=== PATIENT | male | born 1960 | race Caucasian/White ===

== ENCOUNTER 2016-08-24 07:48 | Day surgery (SDC) | payer BC ==
[~2016-08-24 07:48] MED LIST: LACTATED RINGERS 1,000 ML IV SCH; LIDOCAINE 1% 20 ML VIAL (10MG/ML) FOR IV START INTRADERMA PRN
[2016-08-24 08:12] VITALS: TEMP 97
[2016-08-24] MEDS ORDERED: ONDANSETRON 4 MG/2 ML VIAL IVP ONE (08:19)
[2016-08-24] MEDS ORDERED: PROPOFOL 10 MG/ML 20 ML VIAL IV ONE (08:56)
[2016-08-24] MEDS ORDERED: LIDOCAINE 1% INJ 10MG/ML (20 ML MDV) ONE (08:56)
[2016-08-24] MEDS ORDERED: GLYCOPYRROLATE 0.2 MG/ML 2 ML VIAL ONE (08:56)
--- NOTE | 2016-08-24 09:07 | P.PCN ---
Date of Procedure: 08/24/16 Procedure(s) Performed: BRIEF HISTORY: Patient is a 56-year-old, pleasant, white male, scheduled for an upper endoscopy as a part of evaluation of long-standing history of gastric esophageal he for symptoms of several years duration. He is presently maintained on omeprazole 20 mg daily but continues to have daily symptoms with heartburn and passive regurgitation. His and scheduled for an upper endoscopy to rule out compensated reflux disease. PROCEDURE PERFORMED: Esophagogastroduodenoscopy with biopsy. PREOPERATIVE DIAGNOSIS: Long-standing history of GERD with worsening symptoms. IV sedation per anesthesia. PROCEDURE: After informed consent was obtained, the patient was brought into the endoscopy unit. IV conscious sedation was administered by Anesthesia under continuous monitoring. Initially the Olympus GIF-140 video endoscope was inserted into the mouth. Esophagus intubated without any difficulty. It was gradually advanced into the stomach and duodenum and carefully examined. The bulb and the second part of the duodenum appeared normal. The scope at this time was withdrawn to the stomach, adequately insufflated with air, and upon careful examination, mucosa of the antrum had scattered erosions and biopsies were done from this area. The, body, cardia and the fundus appeared normal. The scope was then withdrawn into the esophagus. The GE junction was located at 42 cm from the incisors. There was a short segment of Ledezma's esophagus extending 5-6 mm proximal to the GE junction and this was biopsied. The rest of the esophagus appeared normal. There were no erosions or ulcerations seen and the patient tolerated the procedure well. IMPRESSION: 1. Mild antral erosive gastritis. 2. 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 RECOMMENDATIONS: The findings of this examination were discussed with the patient as well as his family. He will follow with the biopsy results. He was advised to increase omeprazole to 20 mg twice daily half hour before breakfast and dinnertime and follow antireflux measures. He will be seen in office in 4 weeks.
[2016-08-24 09:31] VITALS: BP 105/61; PULSE 48; RESP 18
--- NOTE | 2016-08-26 11:47 | CDI ---
Dear Dr. Barfield, The Procedure note documents IV sedation per anesthesia in on spot and then under Procedure, it is documented as IV Conscious Sedation. On the Anesthesia Record, however, GA/Unconscious sedation is checked off. This is conflicting documentation that needs clarification. Please clarify whether the sedation provided Keira Saúl was Conscious sedation or unconscious sedation. PLEASE DOCUMENT THIS CLARIFICATION AN ADDENDUM TO THE PROCEDURE NOTE. Thank you for your time [facility] Layer [email or web address]
--- NOTE | 2016-09-05 10:28 | PCN ---
ADDENDUM TO PROCEDURE NOTE: General anesthesia was utilized instead of IV conscious sedation.
== END 2016-08-24 09:52 | disposition home or self-care (01) ==
LOC: ORWHC2ENDO 07:48
PROVIDERS: ATTEND Internal Medicine Gastroenterology
DX: K22.70 Barrett's esophagus without dysplasia (principal); K21.0 Gastro-esophageal reflux disease with esophagitis; K20.0 Eosinophilic esophagitis; G62.9 Polyneuropathy, unspecified; K29.50 Unspecified chronic gastritis without bleeding; I10 Essential (primary) hypertension; Z79.899 Other long term (current) drug therapy; Z88.1 Allergy status to other antibiotic agents
CPT/HCPCS: 88305; 88342; 43239; J2405; J2001; J2704

== ENCOUNTER → 2017-12-25 | Day surgery (SDC) | payer BC ==
[2017-12-22 08:19] VITALS: BMI 25.4
[~2017-12-25] MED LIST changes: +ALPRAZolam 0.25 MG TAB PO PRN; +ALPRAZolam 0.5 MG TAB PO PRN; +ASPIRIN 325 MG TAB PO STA; +ATORVASTATIN 80 MG TAB PO STA; +GABAPENTIN 100 MG CAP PO SCH; +HEPARIN SODIUM 1,000 UN/ML (10ML VL) ONE; +IOPAMIDOL-370 125ML BTL INJ ONE; -LACTATED RINGERS 1,000 ML IV SCH; -LIDOCAINE 1% 20 ML VIAL (10MG/ML) FOR IV START INTRADERMA PRN; +LIDOCAINE 2% INJ 20 MG/ML SQ ONE; +NITROGLYCERIN SL TABS 0.4 MG TAB SUBLINGUAL PRN; +NON-FORMULARY DRUG (Aspirin [Adult Low Dose Aspirin Ec] 81 MG) PO SCH; +NON-FORMULARY DRUG (Cholecalciferol (Vitamin D3) [Vitamin D3] 2,000 UNIT) PO SCH; +NON-FORMULARY DRUG (Ezetimibe/Simvastatin [Vytorin 10-20 Mg Tablet] 1 TAB) PO SCH; +NON-FORMULARY DRUG (Fish Oil/Dha/Epa [Fish Oil 1,200 Mg Fish Oil] 1 EACH) PO SCH; +NON-FORMULARY DRUG (Omeprazole [Omeprazole] 20 MG) PO SCH; +NON-FORMULARY DRUG (Ubidecarenone [Co Q-10] 100 MG) PO SCH; +ONDANSETRON 4 MG/2 ML VIAL IVP STA; +RX INFO: IV CONTRAST WAS GIVEN 1 EACH MISC MISCELLANE PRN; +SODIUM CHLORIDE 0.9% 1,000 ML IV SCH; +SODIUM CHLORIDE 0.9% 1,000 ML in EMPTY BAG 1 BAG IV ONE; +VERAPAMIL 2.5 MG/ML 2 ML AMP ONE; +VERAPAMIL SYRINGE (5 MG/10 ML) INTRAARTER ONE; +fentaNYL (PF) 50 MCG/ML 2 ML AMP ONE; +traMADol 50 MG TAB PO PRN
[2017-12-25 07:09] VITALS: TEMP 97.9
[2017-12-25 07:20] LABS: Basophils # (A) 0.1 k/uL (0-0.2); Basophils % (A) 1 %; Eosinophils # (A) 0.4 k/uL (0-0.7); Eosinophils % (A) 7 %; HGB 14.1 gm/dL (13.0-17.5); Lymphocytes % (A) 38 %; MCH 29.6 pg (25.0-35.0); MCHC 33.5 g/dL (31.0-37.0); MCV 88.3 fL (80.0-100.0); Mean Platelet Volume 6.9; Monocytes # (A) 0.3 k/uL (0-1.0); Monocytes % (A) 7 %; Neutrophils # (A) 2.3 k/uL (1.3-7.7); Neutrophils % (A) 45 %; Platelet Count 221 k/uL (150-450); RBC 4.75 m/uL (4.30-5.90); RDW 12.7 % (11.5-15.5); WBC 5.2 k/uL (3.8-10.6)
[2017-12-25] MEDS: fentaNYL (PF) 50 MCG/ML 2 ML AMP IVP ONE ×2 (07:34→07:39)
[2017-12-25 07:44] LABS: Anion Gap 6 mmol/L; Blood Urea Nitrogen 23 mg/dL (9-20); Carbon Dioxide 27 mmol/L (22-30); Chloride 108 mmol/L (98-107); Glucose 103 mg/dL (74-99); Potassium 4.6 mmol/L (3.5-5.1); Sodium 141 mmol/L (137-145)
--- NOTE | 2017-12-25 09:10 | CC ---
CARDIAC CATHETERIZATION REPORT Mr. Hays is a 57-year-old male with a known history of hyperlipidemia, family history of premature coronary artery disease who presented with abnormal myocardial perfusion imaging and symptoms of progressive fatigue as well as episode of chest discomfort on and off. In view of that, recommendation made regarding cardiac catheterization. The procedures, risks and complication were discussed with the patient who is in full understanding and agreement. PROCEDURE: Patient was brought to the poultry farm laborer in a fasting semi-sedated state after receiving fentanyl and Benadryl and achieving moderate conscious sedated state. Using Xylocaine anesthesia and Seldinger technique, a 6-[place] sheath was introduced in the right radial artery. Selective right and left angiography performed using 5-[place] 3.5 half bend right and left Hector catheter. Multiple views of the coronary artery including hemiaxial views were obtained. Following that, a 5-[place] tight pigtail catheter was introduced into the left ventricle and a 30 degree SANTANA view of the left ventricle was obtained. Following that, catheter and sheaths were removed, hemostasis was obtained with deployment of an TR band. There was no immediate complication. Patient was returned to his room in stable condition. FINDINGS: LEFT MAIN: This is a large-sized vessel, bifurcating into left circumflex, left anterior descending artery, left main coronary artery has no evidence of obstructive coronary artery disease. LEFT ANTERIOR DESCENDING ARTERY: This is a large-sized vessel, reaching towards the apex, giving rise to 2 diagonal branch. The left anterior descending artery as well as branches have no evidence of obstructive coronary disease. LEFT CIRCUMFLEX: This is a nondominant vessel, giving rise to the obtuse marginal branch, the first one is very proximal. The left circumflex has no evidence of high- grade stenosis. RIGHT CORONARY ARTERY: This is a large dominant vessel, bifurcating to PDA and posterolateral segment branches, the PDA reaches towards the inferoapical wall. The right coronary artery has no evidence of obstructive coronary artery disease. LEFT VENTRICULOGRAM: Left ventriculogram is performed in 30 degree SANTANA view and revealed normal left ventricular size and systolic function. There was no evidence of segmental wall motion abnormality or mitral regurgitation. HEMODYNAMICS: There was no gradient across the aortic valve. The left ventricular end- diastolic pressure was 12 mmHg. CONCLUSION: 1. Normal coronary arteries. 2. Normal left ventricular size and systolic function. RECOMMENDATION: In view of finding anatomy, I have recommended continue medical therapy. Close followup of his sinus rate and depending on that, further recommendation will be made. Those findings and recommendation were discussed with the patient and his family who are in full understanding and agreement. Duration of the procedure is 17 minutes. GERTRUDE / IJN: [id number] /
[2017-12-25 09:23] VITALS: RESP 16
[2017-12-25 11:31] VITALS: PULSE 42
[2017-12-25 14:08] VITALS: BP 143/86
== END | disposition home or self-care (01) ==
LOC: CATHCVL 06:20
PROVIDERS: ATTEND Internal Medicine Interventional Cardiology
DX: R94.39 Abnormal result of other cardiovascular function study (principal); R07.89 Other chest pain; R00.1 Bradycardia, unspecified; Z82.49 Family history of ischemic heart disease and other diseases of the circulatory system; E78.2 Mixed hyperlipidemia; Z79.899 Other long term (current) drug therapy; Z79.82 Long term (current) use of aspirin
CPT/HCPCS: 93458; 80048; 85025; C1894; C1769; J2001; J2405; J3010; J1644; Q9967

== ENCOUNTER 2019-07-22 10:42 | Day surgery (SDC) | payer BC ==
[2019-07-18 11:56] VITALS: BMI 25.7
[~2019-07-22 10:42] MED LIST changes: -ALPRAZolam 0.25 MG TAB PO PRN; -ALPRAZolam 0.5 MG TAB PO PRN; -ASPIRIN 325 MG TAB PO STA; -ATORVASTATIN 80 MG TAB PO STA; +DEXAMETHASONE SOD PHOSPHATE 10 MG/ML 1 ML VIAL IV ONE; -GABAPENTIN 100 MG CAP PO SCH; -HEPARIN SODIUM 1,000 UN/ML (10ML VL) ONE; +HYDROmorphone 0.5 MG/0.5 ML SYRINGE IVP PRN; -IOPAMIDOL-370 125ML BTL INJ ONE; -LIDOCAINE 2% INJ 20 MG/ML SQ ONE; +MIDAZOLAM 2 MG/2 ML VIAL IV PRN; -NITROGLYCERIN SL TABS 0.4 MG TAB SUBLINGUAL PRN; -NON-FORMULARY DRUG (Aspirin [Adult Low Dose Aspirin Ec] 81 MG) PO SCH; -NON-FORMULARY DRUG (Cholecalciferol (Vitamin D3) [Vitamin D3] 2,000 UNIT) PO SCH; -NON-FORMULARY DRUG (Ezetimibe/Simvastatin [Vytorin 10-20 Mg Tablet] 1 TAB) PO SCH; -NON-FORMULARY DRUG (Fish Oil/Dha/Epa [Fish Oil 1,200 Mg Fish Oil] 1 EACH) PO SCH; -NON-FORMULARY DRUG (Omeprazole [Omeprazole] 20 MG) PO SCH; -NON-FORMULARY DRUG (Ubidecarenone [Co Q-10] 100 MG) PO SCH; +ONDANSETRON 4 MG/2 ML VIAL IVP ONE; -ONDANSETRON 4 MG/2 ML VIAL IVP STA; -RX INFO: IV CONTRAST WAS GIVEN 1 EACH MISC MISCELLANE PRN; -SODIUM CHLORIDE 0.9% 1,000 ML IV SCH; -SODIUM CHLORIDE 0.9% 1,000 ML in EMPTY BAG 1 BAG IV ONE; -VERAPAMIL 2.5 MG/ML 2 ML AMP ONE; -VERAPAMIL SYRINGE (5 MG/10 ML) INTRAARTER ONE; +ceFAZolin 1,000 MG in SODIUM CHLORIDE 0.9% IRRIGATIO 250 ML IRRIGATION ONE; -fentaNYL (PF) 50 MCG/ML 2 ML AMP ONE; -traMADol 50 MG TAB PO PRN
[2019-07-22] MEDS ORDERED: SODIUM CHLORIDE 0.9% 1,000 ML IV ONE (11:16)
[2019-07-22] MEDS ORDERED: PROPOFOL 10 MG/ML 20 ML VIAL IV ONE (13:40)
[2019-07-22] MEDS ORDERED: MIDAZOLAM 2 MG/2 ML VIAL ONE (13:40)
[2019-07-22] MEDS ORDERED: fentaNYL (PF) 50 MCG/ML 2 ML AMP ONE (13:40)
[2019-07-22] MEDS ORDERED: IOPAMIDOL-250 50ML BTL IV ONE (13:52)
[2019-07-22] MEDS ORDERED: LIDOCAINE 1% INJ 10MG/ML (20 ML MDV) ONE (14:01)
[2019-07-22] MEDS ORDERED: LIDOCAINE 1% INJ 10MG/ML (20 ML MDV) SQ ONE ×2 (14:24→14:35)
[2019-07-22] MEDS: ACETAMINOPHEN TAB 325 MG TAB PO PRN ×2 (16:23→21:03)
[2019-07-22] MEDS ORDERED: ONDANSETRON 4 MG/2 ML VIAL IVP STA (20:26)
[2019-07-22] MEDS: GABAPENTIN 100 MG CAP PO SCH (21:03)
[2019-07-22] MEDS: SODIUM CHLORIDE 0.9% 1,000 ML IV SCH (21:05)
[2019-07-22] MEDS: LACTATED RINGERS 1,000 ML IV SCH (21:06)
[2019-07-23 00:53] VITALS: RESP 18
[2019-07-23] MEDS: SODIUM CHLORIDE 0.9% 1,000 ML IV SCH (04:37)
[2019-07-23] MEDS: LACTATED RINGERS 1,000 ML IV SCH (05:03)
--- NOTE | 2019-07-23 07:01 | PCN ---
PROCEDURE NOTE Mr. Hays is a 59-year-old male patient who has symptomatic sick sinus syndrome with dizziness. He is not on any negative chronotropic agents. He is brought in for dual- chamber pacemaker implantation. DESCRIPTION OF PROCEDURE: The patient is brought to the EP lab in a fasting state. Written informed consent was obtained prior to the procedure. The left shoulder area was prepped and draped as per protocol. 1% lidocaine was used for local anesthesia. A 4 cm incision was made parallel to the deltopectoral groove, about 1.5 cm medial to it. The incision was carried down to the level of the pectoralis muscle. A subfascial pocket was made. Hemostasis was assured. The left axillary vein was accessed at 2 points under fluoroscopy and via appropriately-sized introducer sheaths 2 leads were positioned the right heart. The atrial lead was a passive [employer] senior environmental practice leader model #1944, 46 cm in length and serial number [id number]. P waves 5 mV. Pacing impedance 460 ohms. Pacing threshold 0.5 V at 0.4 milliseconds. 10 V test negative. The RV lead was positioned in the mid to high RV septum. This was a [employer] screw-in lead model #2088TC, 58 cm in length and serial number [id number]. R-waves were 4.3 mV, pacing impedance 105 0 ohms, pacing threshold 0.75 V at 0.4 milliseconds. 10 V test negative. Both leads were secured to the underlying pectoralis fascia using 2 nonabsorbable sutures. Pocket was irrigated with antibiotic solution. Leads connected to the generator. [employer] model number [id number], serial #[id number]. Leads and generator were then placed in subfascial pocket. The wound was closed in 3 layers and dressed per protocol. Procedure performed with anesthesia/VENEER STOCK GRADER in attendance. The patient tolerated the procedure well without any acute complications. Device is programmed to DDDR 60-130 ppm with VIP mode turned. RESULTS: Successful dual-chamber pacemaker implantation for symptomatic sick sinus syndrome. MMODL / IJN: [id number] /
--- NOTE | 2019-07-23 07:08 | LTR ---
DATE OF SERVICE: 07/22/2019 Dear Colleen: Mr. Hays underwent dual-chamber pacemaker implantation for symptomatic sick sinus syndrome successfully without any acute complications. He will continue to follow with you and Dr. James as before. Thank you for entrusting us in the care of your patient. Warm regards, Sincerely, MMODL / IJN: [id number] /
[2019-07-23 07:21] VITALS: PULSE 60
[2019-07-23] MEDS: GABAPENTIN 100 MG CAP PO SCH (08:29)
--- NOTE | 2019-07-23 08:56 | XR ---
EXAMINATION TYPE: XR chest 2V DATE OF EXAM: 07/23/2019 COMPARISON: NONE HISTORY: Lead placement check TECHNIQUE: Frontal and lateral views of the chest are obtained. FINDINGS: There is been interval placement of a generator in left pectoral region, there are leads i n right atrium and ventricle. No evident pneumothorax or pleural effusion. Heart size is normal, ther e are overlying cardiac leads. Azygos lobe noted incidentally. IMPRESSION: No evident complication status post lead placement.
[2019-07-23] MEDS ORDERED: ASPIRIN 81 MG PO SCH (09:00)
[2019-07-23 11:21] VITALS: BP 155/93; TEMP 97.4
--- NOTE | 2019-07-23 12:52 | P.DS ---
Providers Attending physician: Arie Gimenez Primary care physician: Colleen [facility] Course: Patient is a 59-year-old male with symptomatic sick sinus syndrome. Yesterday he underwent a successful implantation of a dual-chamber permanent pacemaker. He has done well overnight. He did have one 5 beat episode of NSVT on telemetry. Patient seen and examined resting in bed. Complaining of mild soreness at the pacemaker insertion site. Otherwise doing well. Tolerated his breakfast. He has been up walking around without any dizziness. No chest pain or shortness of breath. No palpitations dizziness or syncope. Chest x-ray reviewed, no evidence of pneumothorax, leads appears stable Patient is afebrile, pulse in the 60s, respirations 18, blood pressure in the 150s over 90s, oxygen saturation 95% on room air Patient seen and examined sitting up in bed, in no acute distress Lungs are clear to auscultation bilaterally. No wheezing rhonchi or crackles Heart is regular, no audible murmurs No elevated JVD No lower extremity edema Dressing clean dry and intact Impression Sick sinus syndrome status post implantation of dual chamber pacemaker 5 beat run of NSVT, asymptomatic, coronary angiogram showing normal coronary arteries in December 2017 Plan Hold off on beta blockers for now in order to minimize his RV pacing percentage Continue current cardiac medication regimen Follow-up in the device clinic in 5 days Follow-up Dr. James Plan - Discharge Summary Discharge Rx Participant: No New Discharge Prescriptions: No Action Gabapentin [Neurontin] 200 mg PO BID Omeprazole 20 mg PO BID traMADol HCl [Ultram] 50 mg PO DAILY PRN PRN Reason: Pain Nitroglycerin Sl Tabs [Nitrostat] 0.4 mg SUBLINGUAL Q5M PRN PRN Reason: Chest Pain Fish Oil/Dha/Epa [Fish Oil 1,200 mg Fish Oil] 1 each PO DAILY Cholecalciferol (Vitamin D3) [Vitamin D3] 2,000 unit PO DAILY Aspirin [Adult Low Dose Aspirin EC] 81 mg PO DAILY Discharge Medication List Gabapentin [Neurontin] 200 mg PO BID 08/23/16 [History] Omeprazole 20 mg PO BID 08/23/16 [History] Aspirin [Adult Low Dose Aspirin EC] 81 mg PO DAILY 12/22/17 [History] Cholecalciferol (Vitamin D3) [Vitamin D3] 2,000 unit PO DAILY 12/22/17 [History] Fish Oil/Dha/Epa [Fish Oil 1,200 mg Fish Oil] 1 each PO DAILY 12/22/17 [History] Nitroglycerin Sl Tabs [Nitrostat] 0.4 mg SUBLINGUAL Q5M PRN 12/22/17 [History] traMADol HCl [Ultram] 50 mg PO DAILY PRN 12/22/17 [History] Follow up Appointment(s)/Referral(s): Sanna James MD [STAFF PHYSICIAN] - 1 Week (Follow-up in the device clinic in 5 days Follow-up with Dr. James/ashish as previously scheduled or in 2-3 months) Activity/Diet/Wound Care/Special Instructions: PATIENT EDUCATION MATERIAL Instructions following a heart rhythm device implant. 1. Keep dressing DRY for 5 DAYS. You may cover the area with Saran or Cling Wrap, prior to a shower. 2. The dressing will be removed in the Device Clinic at [facility]. Absorbable sutures were used to close the wound. 3. Avoid raising the left arm above the shoulder level. 4 week restriction 4. Avoid arm movements, like backscratching, rubbing the head, or pulling on a cord. 4 weeks restriction 5. Gentle range of motion movements of the shoulder, closest to the incision should be performed to avoid a frozen shoulder. (Pendulum exercises of the shoulder) 6. The opposite arm may be used freely. 7. Avoid driving for 7 days. 8. Avoid activities such as golfing, swimming, weed whacking, lifting more than 10 pounds weight, bowling, gymnastics and weight training/lifting. (6 weeks restriction) 9. Activities such as wood chopping with an axe, pull-ups in the gymnasium, power lifting, arc-welding, being close to home induction cooktops will always be a problem. 10. Arm sling is only a reminder not to raise the arm above the head. You do not need to keep the arm completely immobilized. Your free to move the arm and use it and for normal activities. In case of any problems, please call [facility], Tomasz Mota, @ [phone], Attention: Device Clinic Device clinic follow-up in 5 days Follow-up with primary or nurse manager in 2-3 months Discharge Disposition: HOME SELF-CARE
[2019-07-23] MEDS: ACETAMINOPHEN TAB 325 MG TAB PO PRN (14:56)
== END 2019-07-23 15:07 | disposition home or self-care (01) ==
LOC: CATHEP 10:42 → 1SOBS 15:22 → CATHEP 07-23 15:07
PROVIDERS: ATTEND Internal Medicine Clinical Cardiac Electrophysiology
DX: I49.5 Sick sinus syndrome (principal); I45.89 Other specified conduction disorders; Z82.49 Family history of ischemic heart disease and other diseases of the circulatory system; E78.2 Mixed hyperlipidemia; Z79.82 Long term (current) use of aspirin; Z79.899 Other long term (current) drug therapy
CPT/HCPCS: 33208; 71046; C1769 ×4; C1892; C1898 ×2; C1785; J2250; J0690 ×3; J2405; J2001; J3010; J2704; J1170; Q9966

== ENCOUNTER → 2019-07-29 | Outpatient (CLI) | payer BC ==
--- NOTE | 2019-07-29 21:44 | XR ---
EXAMINATION TYPE: XR chest 2V DATE OF EXAM: 07/29/2019 COMPARISON: 07/23/2019 TECHNIQUE: PA and lateral views submitted. HISTORY: Chest pain FINDINGS: The lungs are clear and there is no pneumothorax, pleural effusion, or focal pneumonia. Double lead pacemaker is stable in appearance. No overt failure. Heart size normal. Arthropathy shoulders. Mild degenerative changes spine. IMPRESSION: 1. No acute process.
== END | disposition home or self-care (01) ==
LOC: RAD 16:49
PROVIDERS: ATTEND Internal Medicine Interventional Cardiology
DX: R07.9 Chest pain, unspecified (principal); G89.18 Other acute postprocedural pain
CPT/HCPCS: 71046

== ENCOUNTER 2019-11-22 10:24 | Day surgery (SDC) | payer BC ==
[2019-11-21 12:27] VITALS: BMI 24.4
[~2019-11-22 10:24] MED LIST changes: -DEXAMETHASONE SOD PHOSPHATE 10 MG/ML 1 ML VIAL IV ONE; -HYDROmorphone 0.5 MG/0.5 ML SYRINGE IVP PRN; +LACTATED RINGERS 1,000 ML IV SCH; +LIDOCAINE 1% (10MG/ML) FOR IV START INTRADERMA PRN; -MIDAZOLAM 2 MG/2 ML VIAL IV PRN; -ONDANSETRON 4 MG/2 ML VIAL IVP ONE; -ceFAZolin 1,000 MG in SODIUM CHLORIDE 0.9% IRRIGATIO 250 ML IRRIGATION ONE
[2019-11-22 11:00] VITALS: TEMP 97
[2019-11-22] MEDS ORDERED: ONDANSETRON 4 MG/2 ML VIAL IVP ONE (11:00)
[2019-11-22] MEDS ORDERED: PROPOFOL 10 MG/ML 20 ML VIAL IV ONE (11:20)
[2019-11-22] MEDS ORDERED: LIDOCAINE 1% INJ 10MG/ML (20 ML MDV) ONE (11:20)
--- NOTE | 2019-11-22 11:45 | P.PCN ---
Date of Procedure: 11/22/19 Procedure(s) Performed: Brief history: Patient is a pleasant 59-year-old white male scheduled for an elective upper endoscopy as well as colonoscopy as a part of evaluation of GERD/intermittent dysphagia to solids and history of eosinophilic esophagitis. He also has been having intermittent rectal bleeding and hence scheduled for colonoscopy today. Procedure performed: Esophagogastroduodenoscopy with biopsy Colonoscopy Preoperative diagnosis: GERD/dysphagia Rectal bleeding Anest[facility]: [facility] Procedure: After informed consent was obtained from the patient was brought into the endoscopy unit and IV sedation was administered by anesthesia under continuous monitoring. Initially upper endoscopy was done. The Olympus GF 160 video endoscope was inserted inserted into the mouth and esophagus intubated without any difficulty and was gradually advanced into the stomach and duodenum and carefully examined. The bulb and second part of the duodenum appeared normal. The scope was then withdrawn into the stomach adequately insufflated with air and upon careful examination the antrum had mild gastritis and biopsies were done from this area. The body, cardia and fundus appeared normal. The scope was then withdrawn into the esophagus. The GE junction was located at 44 cm to the incisors. It appeared regular with no erythema erosions or ulcerations. Rest of the esophagus appeared normal. Biopsies were done from the esophagus to evaluate for years of age esophagitis Patient tolerated the procedure well. At this time the patient continued to remain sedation. Initial digital rectal examination was normal. Olympus CF 160 video colonoscope was then inserted into the rectum and gradually advanced to the cecum without any difficulty. Careful examination was performed as the scope was gradually being withdrawn. The prep was excellent. The cecum, ascending colon, transverse colon, descending colon, sigmoid colon and rectum appeared normal. Retroflexion was performed in the rectum and small internal hemorrhoids were noted. Patient tolerated the procedure well. Impression: 1. Upper endoscopy revealed antral gastritis but no evidence of esophagitis or Ledezma's esophagus 2. Colonoscopy was within normal limits with no evidence of colitis or colorectal neoplasia. Small internal hemorrhoids seen. Recommendations: Findings of this examination were discussed with the patient as well as is family. He was advised to follow with the biopsy results. Continue with om eprazole 20 mg twice daily and follow antireflux measures. He can have a repeat screening colonoscopy in 10 years.
[2019-11-22 11:58] VITALS: BP 130/93; PULSE 53; RESP 20
== END 2019-11-22 12:20 | disposition home or self-care (01) ==
LOC: ORWHC2ENDO 10:24
PROVIDERS: ATTEND Internal Medicine Gastroenterology
DX: K21.9 Gastro-esophageal reflux disease without esophagitis (principal); K29.51 Unspecified chronic gastritis with bleeding; K64.8 Other hemorrhoids; E78.5 Hyperlipidemia, unspecified; G62.9 Polyneuropathy, unspecified; Z87.19 Personal history of other diseases of the digestive system; Z79.1 Long term (current) use of non-steroidal anti-inflammatories (NSAID); Z88.1 Allergy status to other antibiotic agents; Z79.891 Long term (current) use of opiate analgesic; Z79.899 Other long term (current) drug therapy; Z95.0 Presence of cardiac pacemaker
CPT/HCPCS: 88305; 45378; 43239; J2405; J2001; J2704